=== PATIENT | female | born 1985 | race African-American/Black ===

== ENCOUNTER → 2017-11-16 | Outpatient (CLI) | payer OTHER ==
[~2017-11-16] MED LIST: FLUT50SP EACH NARE; LAMI1SPR TOPICAL; ONDA4TAB7 SL; VITA500012 PO
--- NOTE | 2017-11-16 13:57 | RADRPT ---
EXAM DATE/TIME: 11/16/2017 11:53 [place] COMPARISON: No previous studies available for comparison. INDICATIONS : History of ligament tear with pain at mid medial foot. MEDICAL HISTORY : None. SURGICAL HISTORY : section. breast augmentation ENCOUNTER: Subsequent ACUITY: 1 year PAIN SCORE: 3/10 LOCATION: Left medial foot TECHNIQUE: Multiplanar, multisequence MRI examination was performed without contrast. FINDINGS: BONE/CARTILAGE: Bone marrow signal is homogeneous. On the coronal images, there is some lateral subluxation of the fi rst tarsometatarsal joint with some mild degenerative changes. The Lisfranc ligament appears to be in tact. There are some subchondral cysts involving the third tarsometatarsal joint. TENDONS: All of the visualized tendons are intact. MISCELLANEOUS: Plantar aponeurosis is intact. Sinus tarsi is within normal limits. CONCLUSION: 1. There is some lateral subluxation of the first tarsometatarsal joint with some mild degenerative c hanges at the articulating surface. 2. There some mild degenerative changes involving the third tarsometatarsal joint. 3. The ligaments appear to be grossly intact. Adán Leigh MD on November 16, 2017 at 13:46 Board Certified Radiologist. This report was verified electronically.
== END ==
LOC: HRAD 10:07
PROVIDERS: ATTEND Orthopaedic Surgery
DX: M79.672 Pain in left foot (principal)
CPT/HCPCS: 73718